=== PATIENT | male | born 1945 | race Caucasian/White ===

== ENCOUNTER → 2018-11-11 | Outpatient (CLI) | payer MEDICARE, BC ==
--- NOTE | 2018-11-11 16:46 | XR ---
EXAMINATION TYPE: XR chest 2V DATE OF EXAM: 11/11/2018 COMPARISON: NONE HISTORY: Bronchospasm and cough, shortness breath TECHNIQUE: Frontal and lateral views of the chest are obtained. FINDINGS: The patient is rotated. Probable calcified granuloma are present within the lungs. There is no focal air space opacity, pleural effusion, or pneumothorax seen. The cardiac silhouette size may be accentuated by rotation. The osseous structures are remarkable for posterior and lateral left s eventh and eighth rib fractures of indeterminate age. There is increased retrosternal airspace, AP di ameter of the chest suggesting underlying COPD, relative flattening the hemidiaphragms on the right. There is bronchial wall thickening. IMPRESSION: Correlate for bronchitis, reactive airways disease. Rib fractures of indeterminate age. Additional findings above.
== END | disposition home or self-care (01) ==
LOC: RADXRYALE 14:21
PROVIDERS: ATTEND Physician Assistant
DX: J98.8 Other specified respiratory disorders (principal)
CPT/HCPCS: 71046

== ENCOUNTER 2021-10-17 22:03 | Observation (INO) | payer MEDICARE, BC ==
[2021-10-17] MEDS ORDERED: ASPIRIN 81 MG PO STA (22:07)
[2021-10-17] MEDS ORDERED: MORPHINE SULFATE 4 MG/ML SYRINGE IV STA (22:07)
[2021-10-17 22:09] VITALS: RESP 18
[2021-10-17] MEDS ORDERED: FAMOTIDINE 20 MG/2 ML VIAL IV STA (22:17)
[2021-10-17] MEDS ORDERED: METOCLOPRAMIDE 5 MG/ML 2 ML VIAL IVP STA (22:17)
[2021-10-17] MEDS ORDERED: diphenhydrAMINE 50 MG/ML 1 ML VIAL IVP STA (22:17)
[2021-10-17] MEDS ORDERED: MAG HYDROX/AL HYDROX/SIMETH 30 ML, HYOSCYAMINE ELIXIR 10 ML, LIDOCAINE VISCOUS 2% 10 ML PO STA ×3 (22:17)
[2021-10-17 22:34] LABS: Anisocytosis Slight; Basophils % (A) 1 %; Eosinophils # (A) 0.1 k/uL (0-0.7); Eosinophils % (A) 4 %; HCT 38.4 % (39.0-53.0); HGB 13.7 gm/dL (13.0-17.5); Lymphocytes # (A) 0.8 k/uL (1.0-4.8); Lymphocytes % (A) 24 %; MCH 35.8 pg (25.0-35.0); MCHC 35.8 g/dL (31.0-37.0); MCV 100.2 fL (80.0-100.0); Macrocytosis Slight; Mean Platelet Volume 7.9; Monocytes # (A) 0.2 k/uL (0-1.0); Monocytes % (A) 6 %; Neutrophils % (A) 61 %; Platelet Count 146 k/uL (150-450); RBC 3.83 m/uL (4.30-5.90); RDW 17.3 % (11.5-15.5); WBC 3.2 k/uL (3.8-10.6)
[2021-10-17 22:57] LABS: Albumin 4.3 g/dL (3.5-5.0); Calcium 8.9 mg/dL (8.4-10.2); Potassium 4.1 mmol/L (3.5-5.1); Total Bilirubin 1.2 mg/dL (0.2-1.3); Total Protein 6.8 g/dL (6.3-8.2)
[2021-10-17 22:58] LABS: Partial Thromboplastin Time 23.4 sec (22.0-30.0); Prothrombin Time 10.8 sec (9.0-12.0)
--- NOTE | 2021-10-17 23:00 | ED ---
General Adult HPI - General Chief complaint: Chest Pain Stated complaint: Chest Pain Time Seen by Provider: 10/17/21 22:07 Source: EMS, RN notes reviewed, old records reviewed Mode of arrival: EMS Limitations: no limitations - History of Present Illness Initial comments: Patient is a 76-year-old male with past medical history remarkable for CAD with multiple stents, [place], hypertension who presents emergency Department complaining of what he states his chest pain but he points to his epigastric region. Chief complaint states chest pain, however pain when he points is in the epigastric and right upper quadrant of the abdomen. He points to his epigastric region and right upper quadrant of his abdomen when he describes the pain. States it is painful and has a difficult time qualifying it. It started today at approximately 8 PM. Was eating Oreo cookies and playing cards at that time. Endorses some mild nausea with the pain. Denies any fevers, chills, sick contacts, shortness of breath, diarrhea. Denies any episodes of emesis. Was concerned due to his heart history and he took 3 nitroglycerin tablets with no relief of the pain. He was given an additional 1-2 tablets by EMS on the way here with no change in the pain. Denies any lightheadedness. Denies any sweatiness. Denies any other acute complaints at this time. Denies any history of intra-abdominal surgeries. Unknown what prior EKGs looked like. He states he does get chest pain since 1999. Denies any known palliative or provocative factors. - Related Data Home Medications Medication Instructions Recorded Confirmed Acetylcysteine [Nac] 1,000 mg PO DAILY 10/17/21 10/17/21 Ascorbic Acid [Vitamin C] 1,000 mg PO DAILY 10/17/21 10/17/21 Aspirin EC [Ecotrin Low Dose] 81 mg PO DAILY 10/17/21 10/17/21 Atorvastatin [Lipitor] 80 mg PO HS 10/17/21 10/17/21 Cholecalciferol [Vitamin D3 (10 20 mcg PO DAILY 10/17/21 10/17/21 Mcg = 400 Iu)] Co Q-10 100mg 100 mg PO DAILY 10/17/21 10/17/21 DULoxetine HCL 20 mg PO DAILY PRN 10/17/21 10/17/21 Finasteride [Proscar] 5 mg PO DAILY 10/17/21 10/17/21 Gabapentin [Neurontin] 100 mg PO QID PRN 10/17/21 10/17/21 Glucos Sul 2Kcl/MSM/Chond/C/Mn 1 cap PO DAILY 10/17/21 10/17/21 [Glucosamine Chondroitin Cap] Isosorbide Mononitrate ER [Imdur] 15 mg PO DAILY 10/17/21 10/17/21 Magnesium 420mg 420 mg PO DAILY 10/17/21 10/17/21 Metoprolol Tartrate [Lopressor] 12.5 mg PO DIRECTED 10/17/21 10/17/21 Multivitamins, Thera [Multivitamin 1 tab PO DAILY 10/17/21 10/17/21 (formulary)] Pantoprazole [Protonix] 40 mg PO BID 10/17/21 10/17/21 Quercetin 500mg 500 mg PO DAILY 10/17/21 10/17/21 Tamsulosin [Flomax] 0.8 mg PO HS 10/17/21 10/17/21 Ticagrelor [Brilinta] 90 mg PO BID 10/17/21 10/17/21 Vitamin B Complex 1 cap PO DAILY 10/17/21 10/17/21 Zinc 50 mg PO DAILY 10/17/21 10/17/21 lisinopriL 2.5 mg PO DAILY 10/17/21 10/17/21 Allergies Allergy/AdvReac Type Severity Reaction Status Date / Time No Known Allergies Allergy Verified 10/17/21 23:31 Review of Systems ROS Statement: Those systems with pertinent positive or pertinent negative responses have been documented in the HPI. Review of Systems: CONST: Denies fever EYES: Denies blurry vision ENT: Denies nasal congestion C/V: Denies Chest pain RESP: Denies shortness of breath GI: Endorses abdominal pain : Denies dysuria SKIN: Denies rash. MSK: Denies joint pain. NEURO: Denies headache ROS Other: All systems not noted in ROS Statement are negative. Past Medical History Past Medical History: Myocardial Infarction ([place]) Smoking Status: Former smoker Past Alcohol Use History: Occasional Past Drug Use History: None Reported General Exam - General Exam Comments Initial Comments: General: Appears in no acute distress. HEAD: Normal with no signs of head trauma. EYES: PERRLA, EOMI, conjunctiva normal, no discharge. ENT: Hearing grossly intact, normal oropharynx. RESPIRATORY: Clear breath sounds bilaterally. No wheezes, rales, or rhonchi. C/V: Regular rate and rhythm. S1 and S2 auscultated, no edema, peripheral pulses 2+ and intact throughout ABD: Abdomen is soft, nondistended. Tenderness to palpation in the right upper quadrant as well as epigastric region of his abdomen. No guarding. No peritoneal signs. No rebound tenderness. No CVA tenderness to percussion. EXT: Normal range of motion, no obvious deformity SKIN: No rashes or lesions observed on exposed skin. NEURO: Alert and oriented 4. No focal deficits. Limitations: no limitations Course Vital Signs 10/17/21 10/17/21 22:05 22:17 Temperature 97.8 F Pulse Rate 62 Pulse Rate [ 61 Rate Supervisor ] Respiratory 18 Rate Blood Pressure 171/94 O2 Sat by Pulse 98 Oximetry Medical Decision Making - Medical Decision Making Based on the patient's presentation and physical exam, despite the initial complaint of chest pain it appears he is mostly having epigastric and right upper quadrant abdominal pain. We have no prior records for the patient. I did recommend we obtain a cardiopulmonary workup. Nitroglycerin tablets did not affect any of this chest pain, he appeared to have a total of 4-5 prior to arrival. Also already received an aspirin from EMS, 324 mg. Therefore we will treat him with a GI cocktail. He was in agreement with this plan. Vital signs are within normal limits. We'll obtain cardiopulmonary labs and abdominal labs. He received an aspirin. EKG showed a left bundle-branch block of unknown chronicity. No prior records for comparison. There are T-wave inversions in the inferior distribution, with a history of RCA stent. Unknown if these are chronic findings or not. Chest x- ray shows no acute cardiopulmonary process. Laboratory studies remarkable for an undetectable troponin. Covid is negative. Abdominal labs are unremarkable. On Reevaluation come patient's pain is completely resolved following the GI cocktail. Vital signs remained within normal limits. Heart scores moderate at 4-5. I did discuss with him at length, as we have no prior records with unknown history of ekg changes, I believe the safest option would be to admit him for telemetry monitoring as well as trending the troponins. He was in agreement with this plan. Cardiology will be consulted. I spoke with Dr. Hodgson of ob servation telemetry who was in agreement this plan as well. Patient is admitted in stable condition. - Lab Data Result diagrams: 10/17/21 22:24 10/17/21 22:24 Lab Results 10/17/21 10/17/21 10/17/21 Range/Units 22:24 22:24 22:24 WBC 3.2 L (3.8-10.6) k/uL RBC 3.83 L (4.30-5.90) m/uL Hgb 13.7 (13.0-17.5) gm/dL Hct 38.4 L (39.0-53.0) % MCV 100.2 H (80.0-100.0) fL MCH 35.8 H (25.0-35.0) pg MCHC 35.8 (31.0-37.0) g/dL RDW 17.3 H (11.5-15.5) % Plt Count 146 L (150-450) k/uL MPV 7.9 Neutrophils % 61 % Lymphocytes % 24 % Monocytes % 6 % Eosinophils % 4 % Basophils % 1 % Neutrophils # 2.0 (1.3-7.7) k/uL Lymphocytes # 0.8 L (1.0-4.8) k/uL Monocytes # 0.2 (0-1.0) k/uL Eosinophils # 0.1 (0-0.7) k/uL Basophils # 0.0 (0-0.2) k/uL Anisocytosis Slight Macrocytosis Slight PT (9.0-12.0) sec INR (<1.2) APTT (22.0-30.0) sec Sodium 139 (137-145) mmol/L Potassium 4.1 (3.5-5.1) mmol/L Chloride 105 (98-107) mmol/L Carbon Dioxide 22 (22-30) mmol/L Anion Gap 12 mmol/L BUN 18 (9-20) mg/dL Creatinine 1.11 (0.66-1.25) mg/dL Est GFR (CKD-EPI)AfAm 75 (>60 ml/min/1.73 sqM) Est GFR (CKD-EPI)NonAf 65 (>60 ml/min/1.73 sqM) Glucose 105 H (74-99) mg/dL Calcium 8.9 (8.4-10.2) mg/dL Magnesium 2.0 (1.6-2.3) mg/dL Total Bilirubin 1.2 (0.2-1.3) mg/dL AST 33 (17-59) U/L ALT 31 (4-49) U/L Alkaline Phosphatase 72 (38-126) U/L Troponin I <0.012 (0.000-0.034) ng/mL Total Protein 6.8 (6.3-8.2) g/dL Albumin 4.3 (3.5-5.0) g/dL Amylase 112 H (30-110) U/L Lipase 258 (23-300) U/L Coronavirus (PCR) (Not Detectd) 10/17/21 10/17/21 Range/Units 22:38 23:21 WBC (3.8-10.6) k/uL RBC (4.30-5.90) m/uL Hgb (13.0-17.5) gm/dL Hct (39.0-53.0) % MCV (80.0-100.0) fL MCH (25.0-35.0) pg MCHC (31.0-37.0) g/dL RDW (11.5-15.5) % Plt Count (150-450) k/uL MPV Neutrophils % % Lymphocytes % % Monocytes % % Eosinophils % % Basophils % % Neutrophils # (1.3-7.7) k/uL Lymphocytes # (1.0-4.8) k/uL Monocytes # (0-1.0) k/uL Eosinophils # (0-0.7) k/uL Basophils # (0-0.2) k/uL Anisocytosis Macrocytosis PT 10.8 (9.0-12.0) sec INR 1.0 (<1.2) APTT 23.4 (22.0-30.0) sec Sodium (137-145) mmol/L Potassium (3.5-5.1) mmol/L Chloride (98-107) mmol/L Carbon Dioxide (22-30) mmol/L Anion Gap mmol/L BUN (9-20) mg/dL Creatinine (0.66-1.25) mg/dL Est GFR (CKD-EPI)AfAm (>60 ml/min/1.73 sqM) Est GFR (CKD-EPI)NonAf (>60 ml/min/1.73 sqM) Glucose (74-99) mg/dL Calcium (8.4-10.2) mg/dL Magnesium (1.6-2.3) mg/dL Total Bilirubin (0.2-1.3) mg/dL AST (17-59) U/L ALT (4-49) U/L Alkaline Phosphatase (38-126) U/L Troponin I (0.000-0.034) ng/mL Total Protein (6.3-8.2) g/dL Albumin (3.5-5.0) g/dL Amylase (30-110) U/L Lipase (23-300) U/L Coronavirus (PCR) Not Detected (Not Detectd) - EKG Data -: EKG Interpreted by Me EKG Comments: 12-lead Electrocardiogram Interpretation Note EKG was reviewed and interpreted by myself. 12-lead ECG performed at 2204 is interpreted by me as revealing [normal sinus rhythm] with left bundle branch block of unknown chronicity. At a rate of 60 beats per minute. Boyd is normal. CA interval 220 ms, QRS durations 157 ms, QTc is 479 ms.. There are T-wave in versions in the inferior leads 2, 3, aVF. Unknown chronicity as we have no prior EKG for comparison.. R wave progression across the precordium was delayed. By my interpretation, this EKG does show T-wave inversions in a. Leads as well as a left bundle-branch block, with unknown chronicity of both. Patient does have a cardiac history and these could be chronic. Unknown.. Disposition Clinical Impression: Abdominal pain of unknown cause Narrative: left bundle branch block of unknown age, history of CAD, abd pain Disposition: ADMITTED IP TO THIS [facility] Condition: Stable Referrals: Nonstaff,Physician [Primary Care Provider] - 1-2 days Time of Disposition: 23:55
--- NOTE | 2021-10-17 23:18 | XR ---
EXAMINATION TYPE: XR chest 2V DATE OF EXAM: 10/17/2021 COMPARISON: NONE HISTORY: Cough and short of breath TECHNIQUE: 2 views FINDINGS: Heart is normal. Lungs are clear of infiltrate. No heart failure. There are no hilar masses . Costophrenic angles are clear. The bony thorax appears intact. IMPRESSION: No active cardiopulmonary disease. Normal heart. No change
[2021-10-17] MEDS ORDERED: ONDANSETRON 4 MG/2 ML VIAL IVP PRN (23:52)
[2021-10-17] MEDS ORDERED: MORPHINE SULFATE 4 MG/ML SYRINGE IV PRN (23:52)
[2021-10-17] MEDS ORDERED: NALOXONE 0.4 MG/ML 1 ML VIAL IV PRN (23:52)
[2021-10-18] MEDS ORDERED: METOPROLOL TARTRATE 12.5 MG TAB PO SCH ×2 (00:15→09:00)
[2021-10-18] MEDS ORDERED: GABAPENTIN 100 MG CAP PO PRN (00:15)
[2021-10-18 03:14] LABS: Basophils % (A) 0 %; Eosinophils # (A) 0.1 k/uL (0-0.7); Eosinophils % (A) 1 %; HCT 36.5 % (39.0-53.0); HGB 12.7 gm/dL (13.0-17.5); Lymphocytes # (A) 0.6 k/uL (1.0-4.8); Lymphocytes % (A) 15 %; MCHC 34.9 g/dL (31.0-37.0); MCV 100.3 fL (80.0-100.0); Macrocytosis Slight; Mean Platelet Volume 7.9; Monocytes # (A) 0.2 k/uL (0-1.0); Monocytes % (A) 6 %; Neutrophils # (A) 3.1 k/uL (1.3-7.7); Neutrophils % (A) 75 %; Platelet Count 155 k/uL (150-450); RBC 3.63 m/uL (4.30-5.90); RDW 15.7 % (11.5-15.5); WBC 4.2 k/uL (3.8-10.6)
[2021-10-18 03:24] LABS: Calcium 8.4 mg/dL (8.4-10.2); Potassium 4.5 mmol/L (3.5-5.1)
--- NOTE | 2021-10-18 04:21 | P.HPIM ---
History of Present Illness H&P Date: 10/18/21 The patient is a 76-year-old male with a PMH of coronary artery disease with multiple stents, hypertension, and hyperlipidemia who presents to the emergency room with complaints of epigastric discomfort. The patient reports that he was in his usual state of health until around 7 PM earlier tonight when he developed an epigastric abdominal discomfort while he was sitting down playing cards. The patient also reported associated nausea without vomiting. He subsequently took 3 nitroglycerin sublingual which did not alleviate his symptoms. Reports that the discomfort was 10 out of 10 on maximal intensity, aching in nature, nonradiating, with no alleviating or exacerbating features and was constant. Reports that the pain gradually improved after arrival to the emergency room and at time of interview had improved to a 3 out of 10. EKG in the emergency room revealed sinus rhythm with first-degree AV block and a left bundle-branch block at 60 bpm. No prior EKGs are available for comparison. Chest x-ray was unremarkable. Laboratory evaluation was remarkable for troponin less than 0.01 2. Review of systems: Pertinent positives and negatives as discussed in HPI, a complete review of s ystems was performed and all other systems are negative. Physical examination: General: non toxic, no distress, appears at stated age, obese Derm: no unusual rashes/lesions, warm Head: atraumatic, normocephalic, symmetric Eyes: EOMI, no lid lag, anicteric sclera, pupils equal round reactive to light ENT: Nose and ears atraumatic Neck: No cervical lymphadenopathy, trachea midline, supple Mouth: no lip lesion, mucus membranes moist Cardiovascular: S1S2 reg, no murmur, positive dorsalis pedis pulse bilateral, no edema Lungs: CTA bilateral, no rhonchi, no rales, no accessory muscle use Abdominal: soft, nontender to palpation, no guarding Ext: muscle strength 5 out of 5 in all 4 extremities grossly, no gross muscle atrophy, no contractures, Neuro: CN II-XI grossly intact, no gross focal neuro deficits Psych: Alert, oriented, appropriate affect Assessment/plan Chest pain, rule out ACS -Cardiology consult -Cardiac monitoring -Trend troponin -Continue with aspirin, statin Chronic conditions: Hypertension, hyperlipidemia -Continue with home meds DVT prophylaxis -Heparin subq The patient is admitted with an anticipated less than 2 midnight stay for evaluation of chest pain CODE STATUS: Full Code Discussed with: Patient Anticipated discharge date: in am Anticipated discharge place: Home Past Medical History Past Medical History: Myocardial Infarction ([place]) Smoking Status: Former smoker Past Alcohol Use History: Occasional Past Drug Use History: None Reported - Past Family History Mother Family Medical History: Hyperlipidemia Medications and Allergies Home Medications Medication Instructions Recorded Confirmed Type Acetylcysteine [Nac] 1,000 mg PO DAILY 10/17/21 10/17/21 History Ascorbic Acid [Vitamin C] 1,000 mg PO DAILY 10/17/21 10/17/21 History Aspirin EC [Ecotrin Low Dose] 81 mg PO DAILY 10/17/21 10/17/21 History Atorvastatin [Lipitor] 80 mg PO HS 10/17/21 10/17/21 History Cholecalciferol [Vitamin D3 (10 20 mcg PO DAILY 10/17/21 10/17/21 History Mcg = 400 Iu)] Co Q-10 100mg 100 mg PO DAILY 10/17/21 10/17/21 History DULoxetine HCL 20 mg PO DAILY PRN 10/17/21 10/17/21 History Finasteride [Proscar] 5 mg PO DAILY 10/17/21 10/17/21 History Gabapentin [Neurontin] 100 mg PO QID PRN 10/17/21 10/17/21 History Glucos Sul 2Kcl/MSM/Chond/C/Mn 1 cap PO DAILY 10/17/21 10/17/21 History [Glucosamine Chondroitin Cap] Isosorbide Mononitrate ER [Imdur] 15 mg PO DAILY 10/17/21 10/17/21 History Magnesium 420mg 420 mg PO DAILY 10/17/21 10/17/21 History Metoprolol Tartrate [Lopressor] 12.5 mg PO DIRECTED 10/17/21 10/17/21 History Multivitamins, Thera [Multivitamin 1 tab PO DAILY 10/17/21 10/17/21 History (formulary)] Pantoprazole [Protonix] 40 mg PO BID 10/17/21 10/17/21 History Quercetin 500mg 500 mg PO DAILY 10/17/21 10/17/21 History Tamsulosin [Flomax] 0.8 mg PO HS 10/17/21 10/17/21 History Ticagrelor [Brilinta] 90 mg PO BID 09/01/22 09/01/22 History Vitamin B Complex 1 cap PO DAILY 10/17/21 10/17/21 History Zinc 50 mg PO DAILY 10/17/21 10/17/21 History lisinopriL 2.5 mg PO DAILY 10/17/21 10/17/21 History Allergies Allergy/AdvReac Type Severity Reaction Status Date / Time No Known Allergies Allergy Verified 10/17/21 23:31 Physical Exam Vitals: Vital Signs Temp Pulse Pulse Resp BP Pulse Ox 10/18/21 00:33 97.6 F 62 18 135/65 99 10/17/21 22:17 61 10/17/21 22:05 97.8 F 62 18 171/94 98 Intake and Output 10/17/21 10/17/21 10/18/21 14:59 22:59 06:59 Other: Weight 90.718 kg Results CBC & Chem 7: 10/18/21 02:44 10/18/21 02:44 Labs: Abnormal Lab Results - Last 24 Hours (Table) 10/17/21 10/17/21 Range/Units 22:24 22:24 WBC 3.2 L (3.8-10.6) k/uL RBC 3.83 L (4.30-5.90) m/uL Hct 38.4 L (39.0-53.0) % MCV 100.2 H (80.0-100.0) fL MCH 35.8 H (25.0-35.0) pg RDW 17.3 H (11.5-15.5) % Plt Count 146 L (150-450) k/uL Lymphocytes # 0.8 L (1.0-4.8) k/uL Glucose 105 H (74-99) mg/dL Amylase 112 H (30-110) U/L
[2021-10-18] MEDS ORDERED: QUERCETIN 500 MG PO SCH (09:00)
[2021-10-18] MEDS ORDERED: NON FORMULARY DRUG (Co Q-10 100mg 100 MG) PO SCH (09:00)
[2021-10-18] MEDS ORDERED: HEPARIN SODIUM,PORCINE/PF 5,000 UNIT/0.5 ML SYRINGE SQ SCH (09:00)
[2021-10-18] MEDS ORDERED: PANTOPRAZOLE 40 MG TABLET PO SCH (09:00)
[2021-10-18] MEDS ORDERED: ASPIRIN 81 MG PO SCH (09:00)
[2021-10-18] MEDS ORDERED: ISOSORBIDE MONONITRATE ER 30 MG TAB.ER.24H PO SCH (09:00)
[2021-10-18] MEDS ORDERED: ZINC SULFATE 220 MG CAP PO SCH (09:00)
[2021-10-18] MEDS ORDERED: MAGNESIUM OXIDE 400 MG TAB PO SCH (09:00)
[2021-10-18] MEDS ORDERED: TICAGRELOR 90 MG TAB PO SCH (09:00)
[2021-10-18] MEDS ORDERED: FINASTERIDE 5 MG TAB PO SCH (09:00)
[2021-10-18] MEDS ORDERED: AMINOPHYLLINE 500 MG/20 ML VIAL IV PRN (09:22)
[2021-10-18] MEDS ORDERED: CAFFEINE CITRATE 60 MG/3 ML VIAL IV PRN (09:22)
[2021-10-18] MEDS ORDERED: REGADENOSON 0.4 MG/5 ML SYRINGE IV PRN (09:22)
[2021-10-18] MEDS ORDERED: NITROGLYCERIN SL TABS 0.4 MG TAB SUBLINGUAL PRN (09:40)
--- NOTE | 2021-10-18 09:44 | P.CRDCN ---
History of Present Illness History of present illness: HISTORY OF PRESENT ILLNESS: This is a 76-year-old male with a past medical history significant for coronary artery disease with previous stenting, hypertension, hyperlipidemia, and ischemic cardiomyopathy. Patient follows with a nurse wound care out of [place]. We have been asked to see the patient in consultation for chest pain. Patient examined at the bedside. Patient states that he was playing cards yesterday with a group of friends. He was walking home with his when he began to have pain in the middle of his chest. He states the pain went straight into his back. He denied any radiation to his arm or jaw. Denied any shortness of breath. He reports nausea but no vomiting. He states when he came home he took 3 nitro and a baby aspirin which did not help his pain at all. He then called EMS who gave him 3 more aspirin. This morning the pain is currently 8 210. Patient states this pain is not similar to his previous heart attack. He reports his symptoms of his previous heart attack were generalized malaise. The patient is a former cigarette smoker and quit smoking in 1998. He reports drinking beer on occasions, specifically the weekends. * EKG reveals sinus mechanism with left bundle-branch block * Chest xray negative for acute process * Laboratory data: WBC 4.2. Hemoglobin 12.7. Platelet count 155. Sodium 137. Potassium 4.5. BUN 16. Creatinine 1.08. Troponin negative 3. * Current home cardiac medications include Lipitor 80 mg at night, Brilinta 90 mg twice a day, lisinopril 2.5 mg daily, Imdur 15 mg daily, and metoprolol succinate 12.5 mg daily REVIEW OF SYSTEMS: At the time of my exam: CONSTITUTIONAL: Denies fever or chills. HEENT: Denies blurred vision, vision changes, or eye pain. Denies hemoptysis CARDIOVASCULAR: Denies chest pain. Denies orthopnea. Denies PND. Denies palpitations RESPIRATORY: Denies shortness of breath. GASTROINTESTINAL: Denies abdominal pain. Denies nausea or vomiting. HEMATOLOGIC: Denies bleeding disorders. GENITOURINARY: Denies any blood in urine. SKIN: Denies pruitis. Denies rash. PHYSICAL EXAM: VITAL SIGNS: Reviewed. GENERAL: Well-developed in no acute distress. HEENT: Head is normocephalic. Pupils are equal, round. Sclerae anicteric. Mucous membranes of the mouth are moist. Neck supple. No JVD or thyromegaly LUNGS: Respirations even and unlabored. Lungs essentially clear to auscultation bilaterally. HEART: Regular rate and rhythm. S1 and S2 heard. ABDOMEN: Soft. Nondistended. Nontender. EXTREMITIES: Normal range of motion. No clubbing or cyanosis. Peripheral pulses intact. No lower extremity edema NEUROLOGIC: Awake and alert. Oriented x 3. ASSESSMENT: Chest pain, troponins negative 3 Left bundle-branch block, unclear if this is old or new as there is no previous EKG for comparison Coronary artery disease with previous stenting, most recently in August 2020 in [place] Hypertension Hyperlipidemia History of ischemic cardiomyopathy, per patient Former nicotine dependence PLAN: Obtain 2-D echo to assess cardiac structure and function Obtain records from patient's primary nurse wound care Resume home cardiac medications Patient will undergo Lexiscan stress test today to assess for ischemia Further recommendations pending patient course Nurse practitioner note has been reviewed by physician. Signing provider agrees with the documented findings, assessment, and plan of care. Past Medical History Past Medical History: Myocardial Infarction ([place]) Last Myocardial Infarction Date:: . History of Any Multi-Drug Resistant Organisms: None Reported Smoking Status: Former smoker Past Alcohol Use History: Occasional Past Drug Use History: None Reported - Past Family History Mother Family Medical History: Hyperlipidemia Medications and Allergies Home Medications Medication Instructions Recorded Confirmed Type Acetylcysteine [Nac] 1,000 mg PO DAILY 10/17/21 10/17/21 History Ascorbic Acid [Vitamin C] 1,000 mg PO DAILY 10/17/21 10/17/21 History Aspirin EC [Ecotrin Low Dose] 81 mg PO DAILY 10/17/21 10/17/21 History Atorvastatin [Lipitor] 80 mg PO HS 10/17/21 10/17/21 History Cholecalciferol [Vitamin D3 (10 20 mcg PO DAILY 10/17/21 10/17/21 History Mcg = 400 Iu)] Co Q-10 100mg 100 mg PO DAILY 10/17/21 10/17/21 History DULoxetine HCL 20 mg PO DAILY PRN 10/17/21 10/17/21 History Finasteride [Proscar] 5 mg PO DAILY 10/17/21 10/17/21 History Gabapentin [Neurontin] 100 mg PO QID PRN 10/17/21 10/17/21 History Glucos Sul 2Kcl/MSM/Chond/C/Mn 1 cap PO DAILY 10/17/21 10/17/21 History [Glucosamine Chondroitin Cap] Isosorbide Mononitrate ER [Imdur] 15 mg PO DAILY 10/17/21 10/17/21 History Magnesium 420mg 420 mg PO DAILY 10/17/21 10/17/21 History Multivitamins, Thera [Multivitamin 1 tab PO DAILY 10/17/21 10/17/21 History (formulary)] Pantoprazole [Protonix] 40 mg PO BID 10/17/21 10/17/21 History Quercetin 500mg 500 mg PO DAILY 10/17/21 10/17/21 History Tamsulosin [Flomax] 0.8 mg PO HS 10/17/21 10/17/21 History Ticagrelor [Brilinta] 90 mg PO BID 10/17/21 10/17/21 History Vitamin B Complex 1 cap PO DAILY 10/17/21 10/17/21 History Zinc 50 mg PO DAILY 10/17/21 10/17/21 History lisinopriL 2.5 mg PO DAILY 10/17/21 10/17/21 History Metoprolol Succinate (ER) [Toprol 12.5 mg PO DAILY 10/18/21 10/18/21 History Xl] Allergies Allergy/AdvReac Type Severity Reaction Status Date / Time No Known Allergies Allergy Verified 10/17/21 23:31 Physical Exam Vitals: Vital Signs Temp Pulse Pulse Pulse Resp BP BP 10/18/21 02:03 98.5 F 61 18 124/68 10/18/21 00:33 97.6 F 62 18 135/65 10/17/21 22:17 61 10/17/21 22:05 97.8 F 62 18 171/94 Pulse Ox 10/18/21 02:03 98 10/18/21 00:33 99 10/17/21 22:17 10/17/21 22:05 98 Intake and Output 10/17/21 10/18/21 10/18/21 22:59 06:59 14:59 Other: Weight 90.718 kg 90.718 kg Results 10/18/21 02:44 10/18/21 02:44 Cardiac Enzymes 10/17/21 10/17/21 10/18/21 Range/Units 22:24 22:24 02:44 AST 33 (17-59) U/L Troponin I <0.012 0.017 (0.000-0.034) ng/mL 10/18/21 Range/Units 05:07 AST (17-59) U/L Troponin I 0.013 (0.000-0.034) ng/mL Coagulation 10/17/21 Range/Units 22:38 PT 10.8 (9.0-12.0) sec APTT 23.4 (22.0-30.0) sec CBC 10/17/21 10/18/21 Range/Units 22:24 02:44 WBC 3.2 L 4.2 (3.8-10.6) k/uL RBC 3.83 L 3.63 L (4.30-5.90) m/uL Hgb 13.7 12.7 L (13.0-17.5) gm/dL Hct 38.4 L 36.5 L (39.0-53.0) % Plt Count 146 L 155 (150-450) k/uL Comprehensive Metabolic Panel 10/17/21 10/18/21 Range/Units 22:24 02:44 Sodium 139 137 (137-145) mmol/L Potassium 4.1 4.5 (3.5-5.1) mmol/L Chloride 105 106 (98-107) mmol/L Carbon Dioxide 22 21 L (22-30) mmol/L BUN 18 16 (9-20) mg/dL Creatinine 1.11 1.08 (0.66-1.25) mg/dL Glucose 105 H 119 H (74-99) mg/dL Calcium 8.9 8.4 (8.4-10.2) mg/dL AST 33 (17-59) U/L ALT 31 (4-49) U/L Alkaline Phosphatase 72 (38-126) U/L Total Protein 6.8 (6.3-8.2) g/dL Albumin 4.3 (3.5-5.0) g/dL Current Medications Generic Name Dose Route Start Last Admin Trade Name Freq PRN Reason Stop Dose Admin Aspirin 81 mg 10/18/21 09:00 Aspirin 81 Mg PO DAILY [facility] Atorvastatin Calcium 80 mg 10/18/21 21:00 Atorvastatin 80 Mg Tab PO HS [facility] Finasteride 5 mg 10/18/21 09:00 Finasteride 5 Mg Tab PO DAILY [facility] Gabapentin 100 mg 10/18/21 00:15 Gabapentin 100 Mg Cap PO QID PRN NERVE PAIN Heparin Sodium (Porcine) 5,000 unit 10/18/21 09:00 Heparin Sodium,Porcine/Pf 5,000 Unit/0.5 Ml Syringe SQ Q12HR [facility] Isosorbide Mononitrate 15 mg 10/18/21 09:00 Isosorbide Mononitrate Er 30 Mg Tab.Er.24h PO DAILY [facility] Lisinopril 2.5 mg 10/18/21 09:00 Lisinopril 2.5 Mg Tab PO DAILY [facility] Magnesium Oxide 400 mg 10/18/21 09:00 Magnesium Oxide 400 Mg Tab PO DAILY [facility] Metoprolol Tartrate 12.5 mg 10/18/21 09:00 Metoprolol Tartrate 12.5 Mg Tab PO DAILY [facility] Morphine Sulfate 4 mg 10/17/21 23:52 Morphine Sulfate 4 Mg/Ml Syringe IV Q4HR PRN Severe Pain (Scale 7 to 10) Naloxone HCl 0.2 mg 10/17/21 23:52 Naloxone 0.4 Mg/Ml 1 Ml Vial IV Q2M PRN Opioid Reversal Ondansetron HCl 4 mg 10/17/21 23:52 Ondansetron 4 Mg/2 Ml Vial IVP Q8HR PRN Nausea And Vomiting Pantoprazole Sodium 40 mg 10/18/21 09:00 Pantoprazole 40 Mg Tablet PO BID [facility] Ticagrelor 90 mg 10/18/21 09:00 Ticagrelor 90 Mg Tab PO BID [facility] Zinc Sulfate 220 mg 10/18/21 09:00 Zinc Sulfate 220 Mg Cap PO DAILY [facility] Intake and Output 10/17/21 10/18/21 10/18/21 22:59 06:59 14:59 Other: Weight 90.718 kg 90.718 kg 10/18/21 02:44 10/18/21 02:44
[2021-10-18] MEDS ORDERED: AMINOPHYLLINE 500 MG/20 ML VIAL IV ONE (11:50)
[2021-10-18 12:56] VITALS: BP 145/66; PULSE 62; TEMP 98.4
--- NOTE | 2021-10-18 13:01 | NM ---
EXAMINATION TYPE: NM stress lexiscan cardiolite DATE OF EXAM: 10/18/2021 COMPARISON: NONE HISTORY: TECHNIQUE: After the intravenous administration of 9.94 mCi Tc 99m Sestamibi - Cardiolite resting SP ECT images acquired 45 minutes post injection. The patient received 0.4mg Lexiscan, 25.2 mCi Tc 99m Sestamibi - Stress images obtained [address] injection FINDINGS: Review of stress and rest SPECT images demonstrates no distinct reversible perfusion abnormality. Fix ed defect involving the apical septum noted. Gated analysis shows reduced wall motion with an estima shin left ventricular ejection fraction of 38 %. IMPRESSION: 1. No scintigraphic evidence for reversible ischemia. 2. Abnormal ejection of 38% fraction wall motion activity. Correlate clinically. 3. Correlate for previous myocardial infarction and apical septal myocardium.
--- NOTE | 2021-10-18 13:32 | CA ---
Transthoracic Echo Report Name: Inga Fields Age: 76 Gender: M : 1945 Exam Date: 10/18/2021 09:03 Exam Location: [facility] Ht (in): 63 Wt (lb): 200 Ordering Physician: Kassandra Barton Attending/Referring Phys: [id number], [employer] Professor Mariama Reynoso RDCS Procedure CPT: Indications: LV function Cardiac Hx: Technical Quality: Technically difficult study Contrast 1: Lumason Total Dose (mL): 3 Contrast 2: Total Dose (mL): MEASUREMENTS (Male / Female) Normal Values 2D ECHO LV Diastolic Diameter PLAX 6.0 cm 4.2 - 5.9 / 3.9 - 5.3 cm LV Systolic Diameter PLAX 5.1 cm IVS Diastolic Thickness 0.9 cm 0.6 - 1.0 / 0.6 - 0.9 cm LVPW Diastolic Thickness 0.9 cm 0.6 - 1.0 / 0.6 - 0.9 cm LV Relative Wall Thickness 0.3 LA Volume 83.6 cm??? 18 - 58 / 22 - 52 cm??? M-MODE MV E Point Septal Separation 0.9 cm DOPPLER MV Area PHT 4.0 cm??? Mitral E Point Velocity 51.1 cm/s Mitral A Point Velocity 98.6 cm/s Mitral E to A Ratio 0.5 MV Deceleration Time 188.6 ms MV E' Velocity 2.4 cm/s Mitral E to MV E' Ratio 21.2 TR Peak Velocity 244.0 cm/s TR Peak Gradient 23.8 mmHg Right Ventricular Systolic Press 28.8 mmHg FINDINGS Left Ventricle Mildly increased left ventricular diastolic diameter. Global left ventricular hypokinesis. Left ventricular ejection fraction is estimated at 25 %. Right Ventricle Normal right ventricular size and function. Right ventricular systolic pressure within normal limits. Right Atrium Normal right atrial size. Left Atrium Severely increased left atrial volume. Mildly increased left atrial area. Mitral Valve Structurally normal mitral valve. Mild mitral regurgitation. Aortic Valve Trileaflet aortic valve. Tricuspid Valve Structurally normal tricuspid valve. Pulmonic Valve Pulmonic valve not well visualized. Pericardium Normal pericardium. Aorta Aortic root and proximal ascending aorta not well visualized. CONCLUSIONS Left ventricular ejection fraction 25% Global hypokinesis Mild mitral regurgitation RVSP 28 No pericardial effusion Previewed by: Dr. Jacob Luna DO (Electronically Signed) Final Date: 18 October 2021 13:31
--- NOTE | 2021-10-18 17:02 | P.DS ---
Providers Date of admission: 10/17/21 23:52 Expected date of discharge: 10/18/21 Attending physician: Bethany Hodgson MD Consults: 10/17/21 23:52 Consult Physician Routine Consulting Provider: [facility] Consult Reason/Comments: abd pain, LBBB of unknown chronicity on ekg, hx of stent RCA Do you want consulting provider notified?: Yes, Notify in am Primary care physician: Physician Nonstaff Hospital Course: Discharge Diagnosis: Acute chest pain Chronic systolic heart failure GERD History of CAD Hospital Course: 76-year-old male with history of CAD status post multiple stents [most recent in 2020), hypertension, hyperlipidemia, GERD initially presented with acute epigastric discomfort. On arrival, pain had began to improve. EKG demonstrated first-degree AV block and left bundle branch block. No prior EKGs available for comparison. Chest x-ray initially was unremarkable. Troponin was less than 0.017. Patient was evaluated by cardiology. Lexiscan stress test showed no evidence of reversible ischemia. Echo demonstrated LVEF of 25% with global hypokinesis and mild mitral regurgitation. Patient is a resident of [place], and is visiting here. He will be returning back in 2 weeks. Upon reviewing records from [place], patient does have previously recorded left bundle branch block and a low EF of 30%. Upon discharge, patient was chest pain-free. Chest pain likely noncardiac in origin given negative stress test and unchanged EKG and echocardiogram findings. 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 Patient seen and examined at bedside. Vital signs reviewed and stable. General: nontoxic, no distress, appears at stated age Derm: warm, dry Head: atraumatic, normocephalic, symmetric Eyes: EOMI, no lid lag, anicteric sclera Mouth: no lip lesion, mucus membranes moist Cardiovascular: S1S2 reg, no murmur Lungs: CTA bilateral, no rhonchi, no rales , no accessory muscle use Abdominal: soft, nontender to palpation, no guarding, no appreciable organomegaly Ext: no gross muscle atrophy, trace peripheral edema, no contractures Neuro: CN II-XI grossly intact, no focal neuro deficits Psych: Alert, oriented, appropriate affect A total of 36 minutes of time were spent preparing this complex discharge summary. Patient was discharged on 10/18/21 at 13:44. Patient Condition at Discharge: Stable Plan - Discharge Summary Discharge Rx Participant: Yes New Discharge Prescriptions: Continue Acetylcysteine [Nac] 1,000 mg PO DAILY Cholecalciferol [Vitamin D3 (10 Mcg = 400 Iu)] 20 mcg PO DAILY Ascorbic Acid [Vitamin C] 1,000 mg PO DAILY Aspirin EC [Ecotrin Low Dose] 81 mg PO DAILY Zinc 50 mg PO DAILY Finasteride [Proscar] 5 mg PO DAILY Pantoprazole [Protonix] 40 mg PO BID Magnesium 420mg 420 mg PO DAILY Isosorbide Mononitrate ER [Imdur] 15 mg PO DAILY DULoxetine HCL 20 mg PO DAILY PRN PRN Reason: NERVE PAIN Metoprolol Succinate (ER) [Toprol XL] 12.5 mg PO DAILY Quercetin 500mg 500 mg PO DAILY Multivitamins, Thera [Multivitamin (formulary)] 1 tab PO DAILY Glucos Sul 2Kcl/MSM/Chond/C/Mn [Glucosamine Chondroitin Cap] 1 cap PO DAILY Vitamin B Complex 1 cap PO DAILY Tamsulosin [Flomax] 0.8 mg PO HS Co Q-10 100mg 100 mg PO DAILY lisinopriL 2.5 mg PO DAILY Ticagrelor [Brilinta] 90 mg PO BID Atorvastatin [Lipitor] 80 mg PO HS Gabapentin [Neurontin] 100 mg PO QID PRN PRN Reason: NERVE PAIN Discharge Medication List Acetylcysteine [Nac] 1,000 mg PO DAILY 10/17/21 [History] Ascorbic Acid [Vitamin C] 1,000 mg PO DAILY 10/17/21 [History] Aspirin EC [Ecotrin Low Dose] 81 mg PO DAILY 10/17/21 [History] Atorvastatin [Lipitor] 80 mg PO HS 10/17/21 [History] Cholecalciferol [Vitamin D3 (10 Mcg = 400 Iu)] 20 mcg PO DAILY 10/17/21 [History] Co Q-10 100mg 100 mg PO DAILY 10/17/21 [History] DULoxetine HCL 20 mg PO DAILY PRN 10/17/21 [History] Finasteride [Proscar] 5 mg PO DAILY 10/17/21 [History] Gabapentin [Neurontin] 100 mg PO QID PRN 10/17/21 [History] Glucos Sul 2Kcl/MSM/Chond/C/Mn [Glucosamine Chondroitin Cap] 1 cap PO DAILY 10/17/21 [History] Isosorbide Mononitrate ER [Imdur] 15 mg PO DAILY 10/17/21 [History] Magnesium 420mg 420 mg PO DAILY 10/17/21 [History] Multivitamins, Thera [Multivitamin (formulary)] 1 tab PO DAILY 10/17/21 [History] Pantoprazole [Protonix] 40 mg PO BID 10/17/21 [History] Quercetin 500mg 500 mg PO DAILY 10/17/21 [History] Tamsulosin [Flomax] 0.8 mg PO HS 10/17/21 [History] Ticagrelor [Brilinta] 90 mg PO BID 10/17/21 [History] Vitamin B Complex 1 cap PO DAILY 10/17/21 [History] Zinc 50 mg PO DAILY 10/17/21 [History] lisinopriL 2.5 mg PO DAILY 10/17/21 [History] Metoprolol Succinate (ER) [Toprol XL] 12.5 mg PO DAILY 10/18/21 [History] Follow up Appointment(s)/Referral(s): Nonstaff,Physician [Primary Care Provider] - 1-2 days Patient Instructions/Handouts: Angina (GEN) Activity/Diet/Wound Care/Special Instructions: Please see PCP and Cardiology as soon as possible once back in [place]. Discharge Disposition: HOME SELF-CARE
[2021-10-18] MEDS ORDERED: ATORVASTATIN 80 MG TAB PO SCH (21:00)
[2021-10-18] MEDS ORDERED: TAMSULOSIN 0.4 MG CAP.ER.24H PO SCH (21:00)
[2021-10-19] MEDS ORDERED: MULTIVITAMINS, THERA 1 EACH TAB PO SCH (09:00)
[2021-10-19] MEDS ORDERED: CHOLECALCIFEROL 10 MCG (400 IU) TABLET PO SCH (09:00)
[2021-10-19] MEDS ORDERED: FOLIC ACID-VIT B COMPLEX-VIT C 1 CAP PO SCH (09:00)
[2021-10-19] MEDS ORDERED: ASCORBIC ACID 500 MG TAB PO SCH (09:00)
== END 2021-10-18 14:08 | disposition home or self-care (01) ==
LOC: EC 22:03 → 6NMEDSUR 23:52
PROVIDERS: ADMIT Internal Medicine; ATTEND Internal Medicine
DX: R07.89 Other chest pain (principal); R10.13 Epigastric pain; I25.10 Atherosclerotic heart disease of native coronary artery without angina pectoris; I11.0 Hypertensive heart disease with heart failure; I50.22 Chronic systolic (congestive) heart failure; I34.0 Nonrheumatic mitral (valve) insufficiency; I25.5 Ischemic cardiomyopathy; I44.7 Left bundle-branch block, unspecified; E78.5 Hyperlipidemia, unspecified; I44.0 Atrioventricular block, first degree; K21.9 Gastro-esophageal reflux disease without esophagitis; I25.2 Old myocardial infarction; R10.11 Right upper quadrant pain; R11.0 Nausea; Z20.822 Contact with and (suspected) exposure to COVID-19; Z79.82 Long term (current) use of aspirin; Z79.02 Long term (current) use of antithrombotics/antiplatelets; Z79.899 Other long term (current) drug therapy; Z87.891 Personal history of nicotine dependence; Z95.5 Presence of coronary angioplasty implant and graft; Z83.49 Family history of other endocrine, nutritional and metabolic diseases
CPT/HCPCS: 96372; 96374; 96375; 99285; 36415; 93005; 93017; 80053; 80048; 82150; 83690; 83735; 84484 ×2; 85025 ×2; 85610; 85730; 87635; 71046; 78452; G0378; C8929; A9500; S0138; J2270; J1200; J2765; J0280; J2785; Q9950; J1644; 93306

== ENCOUNTER 2021-10-25 02:55 | Observation (INO) | payer MEDICARE, BC ==
--- NOTE | 2021-10-25 03:10 | ED ---
Chest Pain HPI - General Chief Complaint: Chest Pain Stated Complaint: Anxiety Attack Time Seen by Provider: 10/25/21 03:01 Source: patient, family, RN notes reviewed, old records reviewed Mode of arrival: ambulatory Limitations: no limitations - History of Present Illness Initial Comments: This is a 76-year-old male to the emergency department for evaluation presents today for evaluation of chest pain with significant history of heart disease multiple stents and recent admission for chest pain. Patient presents today with worsening chest pain going on for the last 2 days. Patient presents with chest pain here in the ER today and has persistent chest pain on evaluation MD Complaint: chest pain -: days(s) Onset: during rest, during exertion Pain Location: left chest Severity: moderate Severity scale (1-10): 6 Quality: tightness, heaviness Consistency: intermittent Improves With: nothing Worsens With: exertion Anginal Symptoms: sense of impending doom Other Symptoms: palpitations Treatments Prior to Arrival: none - Related Data Home Medications Medication Instructions Recorded Confirmed Acetylcysteine [Nac] 1,000 mg PO DAILY 10/17/21 10/17/21 Ascorbic Acid [Vitamin C] 1,000 mg PO DAILY 10/17/21 10/17/21 Aspirin EC [Ecotrin Low Dose] 81 mg PO DAILY 10/17/21 10/17/21 Atorvastatin [Lipitor] 80 mg PO HS 10/17/21 10/17/21 Cholecalciferol [Vitamin D3 (10 20 mcg PO DAILY 10/17/21 10/17/21 Mcg = 400 Iu)] Co Q-10 100mg 100 mg PO DAILY 10/17/21 10/17/21 DULoxetine HCL 20 mg PO DAILY PRN 10/17/21 10/17/21 Finasteride [Proscar] 5 mg PO DAILY 10/17/21 10/17/21 Gabapentin [Neurontin] 100 mg PO QID PRN 10/17/21 10/17/21 Glucos Sul 2Kcl/MSM/Chond/C/Mn 1 cap PO DAILY 10/17/21 10/17/21 [Glucosamine Chondroitin Cap] Isosorbide Mononitrate ER [Imdur] 15 mg PO DAILY 10/17/21 10/17/21 Magnesium 420mg 420 mg PO DAILY 10/17/21 10/17/21 Multivitamins, Thera [Multivitamin 1 tab PO DAILY 10/17/21 10/17/21 (formulary)] Pantoprazole [Protonix] 40 mg PO BID 10/17/21 10/17/21 Quercetin 500mg 500 mg PO DAILY 10/17/21 10/17/21 Tamsulosin [Flomax] 0.8 mg PO HS 10/17/21 10/17/21 Ticagrelor [Brilinta] 90 mg PO BID 10/17/21 10/17/21 Vitamin B Complex 1 cap PO DAILY 10/17/21 10/17/21 Zinc 50 mg PO DAILY 10/17/21 10/17/21 lisinopriL 2.5 mg PO DAILY 10/17/21 10/17/21 Metoprolol Succinate (ER) [Toprol 12.5 mg PO DAILY 10/18/21 10/18/21 XL] Allergies Allergy/AdvReac Type Severity Reaction Status Date / Time No Known Allergies Allergy Verified 10/25/21 03:05 Review of Systems ROS Statement: Those systems with pertinent positive or pertinent negative responses have been documented in the HPI. ROS Other: All systems not noted in ROS Statement are negative. EKG Findings - EKG Comments: EKG Findings:: EKG shows chest pain sinus 62 MS 202 QRS 150 QTC 486 Past Medical History Past Medical History: Myocardial Infarction ([place]) Last Myocardial Infarction Date:: . History of Any Multi-Drug Resistant Organisms: None Reported Past Surgical History: No Surgical Hx Reported Past Psychological History: No Psychological Hx Reported Smoking Status: Former smoker Past Alcohol Use History: Occasional Past Drug Use History: None Reported - Past Family History Mother Family Medical History: Hyperlipidemia General Exam Limitations: no limitations General appearance: alert, in no apparent distress Head exam: Present: atraumatic, normocephalic, normal inspection Eye exam: Present: normal appearance, PERRL, EOMI. Absent: scleral icterus, conjunctival injection, periorbital swelling ENT exam: Present: normal exam, mucous membranes moist Neck exam: Present: normal inspection. Absent: tenderness, meningismus, lymphadenopathy Respiratory exam: Present: normal lung sounds bilaterally. Absent: respiratory distress, wheezes, rales, rhonchi, stridor Cardiovascular Exam: Present: regular rate, normal rhythm, normal heart sounds. Absent: systolic murmur, diastolic murmur, rubs, gallop, clicks GI/Abdominal exam: Present: soft, normal bowel sounds. Absent: distended, tenderness, guarding, rebound, rigid Extremities exam: Present: normal inspection, full ROM, normal capillary refill. Absent: tenderness, pedal edema, joint swelling, calf tenderness Back exam: Present: normal inspection Neurological exam: Present: alert, oriented X3, CN II-XII intact Psychiatric exam: Present: normal affect, normal mood Skin exam: Present: warm, dry, intact, normal color. Absent: rash Course Vital Signs 10/25/21 10/25/21 03:01 03:30 Temperature 97.5 F L Pulse Rate 63 Pulse Rate [ 66 Pulse Oximetery ] Respiratory 22 Rate Blood Pressure 148/72 O2 Sat by Pulse 99 Oximetry - Reevaluation(s) Reevaluation #1: 10/25/21 04:49 Medical record is reviewed Reevaluation #2: 10/25/21 04:49 Patient having persistent chest pain here in the ER Reevaluation #3: 10/25/21 04:49 Patient informed of results and questions answered - Consultations Consultation #1: Spoke with sound who agrees to admit this patient Chest Pain MDM - MDM 76 male DF for evaluation of chest pain chest pain rule out ACS. Pain is persistent from prior hospitalization significant history of heart disease Critical Care Time Critical Care Time: Yes Total Critical Care Time: 31 Disposition Clinical Impression: Chest pain Disposition: ADMITTED IP TO THIS [facility] Condition: Undetermined Instructions (If sedation given, give patient instructions): Chest Pain (ED) Is patient prescribed a controlled substance at d/c from ED?: No Referrals: Nonstaff,Physician [Primary Care Provider] - 1-2 days Time of Disposition: 04:50
--- NOTE | 2021-10-25 03:49 | XR ---
EXAMINATION TYPE: XR chest 2V DATE OF EXAM: 10/25/2021 COMPARISON: 10/17/2021 HISTORY: Chest pain TECHNIQUE: 2 views FINDINGS: Heart and mediastinum are normal. Lungs are clear. Diaphragm is normal. Bony thorax is inta ct IMPRESSION: Normal chest. No change.
[2021-10-25 03:54] LABS: Albumin 4.2 g/dL (3.5-5.0); Potassium 4.2 mmol/L (3.5-5.1); Total Bilirubin 1.1 mg/dL (0.2-1.3); Total Protein 6.4 g/dL (6.3-8.2)
[2021-10-25 03:58] LABS: Basophils % (A) 1 %; Eosinophils # (A) 0.1 k/uL (0-0.7); Eosinophils % (A) 4 %; HCT 40.8 % (39.0-53.0); HGB 13.6 gm/dL (13.0-17.5); Lymphocytes # (A) 0.4 k/uL (1.0-4.8); Lymphocytes % (A) 13 %; MCH 32.8 pg (25.0-35.0); MCHC 33.4 g/dL (31.0-37.0); MCV 98.2 fL (80.0-100.0); Mean Platelet Volume 8.2; Monocytes # (A) 0.2 k/uL (0-1.0); Monocytes % (A) 8 %; Neutrophils # (A) 2.1 k/uL (1.3-7.7); Neutrophils % (A) 71 %; Platelet Count 143 k/uL (150-450); Prothrombin Time 10.8 sec (9.0-12.0); RBC 4.15 m/uL (4.30-5.90); RDW 13.8 % (11.5-15.5); WBC 2.9 k/uL (3.8-10.6)
[2021-10-25] MEDS ORDERED: MORPHINE SULFATE 4 MG/ML SYRINGE IVP PRN (04:42)
[2021-10-25] MEDS ORDERED: MORPHINE SULFATE 4 MG/ML SYRINGE IVP STA (04:42)
[2021-10-25] MEDS ORDERED: NITROGLYCERIN SL TABS 0.4 MG TAB SUBLINGUAL PRN (04:46)
[2021-10-25] MEDS ORDERED: HEPARIN SODIUM 1,000 UN/ML (10ML VL) IV ONE (04:46)
[2021-10-25] MEDS ORDERED: HEPARIN SOD,PORK IN 0.45% NACL 25,000 UNIT in 0.45% NACL 1 250ML.BAG IV SCH (05:00)
[2021-10-25] MEDS ORDERED: GABAPENTIN 100 MG CAP PO PRN (09:29)
[2021-10-25] MEDS ORDERED: DULoxetine HCL 20 MG CAPSULE.DR PO PRN (09:29)
--- NOTE | 2021-10-25 09:29 | P.HPIM ---
History of Present Illness H&P Date: 10/25/21 History of Presenting Illness: Patient is a very pleasant 76-year-old male with a past medical history of CAD with stents on dual antiplatelet therapy with aspirin and Brilinta, h ypertension, ischemic cardiomyopathy, and hyperlipidemia. he presented to the emergency department with a chief complaint of chest pain. Patient reports midsternal chest pain with exertion. Patient states he has been experiencing this intermittent pain over the past 2 days. He denies having any headache, lightheadedness, dizziness, palpitations, shortness of breath, exertional dyspnea, nausea, diaphoresis, or experiencing any numbness/tingling/weakness/swelling in his extremities. Patient describes this pain as a tightness and states that it remains in his midsternal chest and denies any radiation of this pain. Patient denies anything making it better or worse but does state he noticed that it comes on more with exertion. Patient underwent full evaluation in the emergency department. EKG completed revealing sinus rhythm at 62 bpm with a left bundle branch blockwhich is unchanged from previous EKG obtained on 10/17/21. chest x-ray negative for acute cardiopulmonary process.CBC revealing bicytopenia with WBC count of 2.9 and platelet count of 143. CMP showing no significant abnormalities. Initial troponin 0.022 with repeat troponin is 0.026. Patient admitted under our services with consultation to cardiology. Review of systems: Pertinent positives and negatives as discussed in HPI, a complete review of systems was performed and all other systems are negative. Physical exam: Vital signs reviewed and stable. General: Nontoxic, no distress and appears stated age. Derm: Skin warm and dry, normal coloration for ethnicity. Head: Atraumatic, normocephalic and symmetric. Eyes: EOMs intact, no lid lag, and anicteric sclera Mouth: no lip lesions, mucus membranes moist Cardiovascular: regular rate and rhythm with normal S1S2, systolic murmur, positive posterior tibial pulses bilaterally, and cap refill < 2 seconds. Lungs: Respirations even, regular, and unlabored on room air. Lungs CTA bilaterally, no rhonchi, no rales, no wheezing, and no accessory muscle usage. Abdominal: soft, nontender to palpation, no guarding, no appreciable organomegaly Ext: ROM intact. No gross muscle atrophy, trace bilateral lower extremity edema, no contractures Neuro: Speech clear, face symmetrical and CN II-XII grossly intact with no noted focal neuro deficits Psych: Alert and oriented to person, place, time, and situation. Appropriate and pleasant affect. Assessment and Plan of Care: Chest pain, rule out acute coronary event History of CAD with stents Ischemic cardiomyopathy with previously known EF of 25% Hypertension Hyperlipidemia -Cardiology consult, appreciate further recommendations -Telemetry monitoring -Trend troponins -Cardiac diet, NPO at midnight -Continue cardiac medication regimen with Brilinta,aspirin, atorvastatin, isosorbide mononitrate, lisinopril, and metoprolol. -Echocardiogram completed 10/18/21 revealing severely impaired EF of 25% with left global hypokinesis and mild mitral regurgitation. The patient is admitted with an anticipated less than 2 midnight stay for evaluation of chest pain CODE STATUS: Full code DVT prophylaxis: Heparin Discussed with: Pt and RN Anticipated discharge date: 1-[address]: Home A total of 49 minutes was spent on the care of this complex patient more than 50% of the time was spent in counseling and care coordination. I reviewed the documentation as provided by the MENDOZA above, who is the original author of this note. I agree with the documented assessment and plan, with the following changes: none Past Medical History Past Medical History: Myocardial Infarction (ND) Last Myocardial Infarction Date:: . History of Any Multi-Drug Resistant Organisms: None Reported Past Surgical History: No Surgical Hx Reported Past Psychological History: No Psychological Hx Reported Smoking Status: Former smoker Past Alcohol Use History: Occasional Past Drug Use History: None Reported - Past Family History Mother Family Medical History: Hyperlipidemia Medications and Allergies Home Medications Medication Instructions Recorded Confirmed Type Acetylcysteine [Nac] 1,000 mg PO DAILY 10/17/21 10/25/21 History Ascorbic Acid [Vitamin C] 1,000 mg PO DAILY 10/17/21 10/25/21 History Aspirin EC [Ecotrin Low Dose] 81 mg PO DAILY 10/17/21 10/25/21 History Atorvastatin [Lipitor] 80 mg PO HS 10/17/21 10/25/21 History Cholecalciferol [Vitamin D3 (10 20 mcg PO DAILY 10/17/21 10/25/21 History Mcg = 400 Iu)] Co Q-10 100mg 100 mg PO DAILY 10/17/21 10/25/21 History DULoxetine HCL 20 mg PO DAILY PRN 10/17/21 10/25/21 History Finasteride [Proscar] 5 mg PO DAILY 10/17/21 10/25/21 History Gabapentin [Neurontin] 100 mg PO QID PRN 10/17/21 10/25/21 History Glucos Sul 2Kcl/MSM/Chond/C/Mn 1 cap PO DAILY 10/17/21 10/25/21 History [Glucosamine Chondroitin Cap] Isosorbide Mononitrate ER [Imdur] 15 mg PO DAILY 10/17/21 10/25/21 History Magnesium 420mg 420 mg PO DAILY 10/17/21 10/25/21 History Multivitamins, Thera [Multivitamin 1 tab PO DAILY 10/17/21 10/25/21 History (formulary)] Pantoprazole [Protonix] 40 mg PO BID 10/17/21 10/25/21 History Quercetin 500mg 500 mg PO DAILY 10/17/21 10/25/21 History Tamsulosin [Flomax] 0.8 mg PO HS 10/17/21 10/25/21 History Ticagrelor [Brilinta] 90 mg PO BID 10/17/21 10/25/21 History Vitamin B Complex 1 cap PO DAILY 10/17/21 10/25/21 History Zinc 50 mg PO DAILY 10/17/21 10/25/21 History lisinopriL 2.5 mg PO DAILY 10/17/21 10/25/21 History Metoprolol Succinate (ER) [Toprol 12.5 mg PO DAILY 10/18/21 10/25/21 History XL] Allergies Allergy/AdvReac Type Severity Reaction Status Date / Time No Known Allergies Allergy Verified 10/25/21 07:04 Physical Exam Osteopathic Statement: *. No significant issues noted on an osteopathic structural exam other than those noted in the History and Physical/Consult. Vitals: Vital Signs Temp Pulse Pulse Resp BP Pulse Ox 10/25/21 09:08 58 L 18 127/71 98 10/25/21 05:43 59 L 18 135/76 98 10/25/21 04:46 60 18 153/79 96 10/25/21 03:30 66 10/25/21 03:01 97.5 F L 63 22 148/72 99 Intake and Output 10/24/21 10/25/21 10/25/21 22:59 06:59 14:59 Other: Weight 90.718 kg Results CBC & Chem 7: 10/25/21 03:04 10/26/21 04:54 Labs: Abnormal Lab Results - Last 24 Hours (Table) 10/25/21 10/25/21 Range/Units 03:04 03:04 WBC 2.9 L (3.8-10.6) k/uL RBC 4.15 L (4.30-5.90) m/uL Plt Count 143 L (150-450) k/uL Lymphocytes # 0.4 L (1.0-4.8) k/uL Carbon Dioxide 21 L (22-30) mmol/L BUN 22 H (9-20) mg/dL Glucose 117 H (74-99) mg/dL
[2021-10-25] MEDS ORDERED: NON FORMULARY DRUG (Co Q-10 100mg 100 MG) PO SCH (09:30)
[2021-10-25] MEDS ORDERED: NON FORMULARY DRUG (Vitamin B Complex [Vitamin B Complex] 1 EACH Capsule) PO SCH (09:45)
[2021-10-25] MEDS: METOPROLOL SUCCINATE (ER) 25 MG TAB.ER.24H PO SCH (10:49)
[2021-10-25] MEDS: ASCORBIC ACID 500 MG TAB PO SCH (10:50)
[2021-10-25] MEDS: PANTOPRAZOLE 40 MG TABLET PO SCH ×3 (10:50→20:50)
[2021-10-25] MEDS: MULTIVITAMINS, THERA 1 EACH TAB PO SCH (10:50)
[2021-10-25] MEDS: TICAGRELOR 90 MG TAB PO SCH ×2 (10:51→20:50)
[2021-10-25] MEDS: ASPIRIN 81 MG PO SCH (10:51)
[2021-10-25] MEDS: ZINC SULFATE 220 MG CAP PO SCH (10:51)
[2021-10-25] MEDS: FINASTERIDE 5 MG TAB PO SCH (10:51)
[2021-10-25] MEDS: CHOLECALCIFEROL 10 MCG (400 IU) TABLET PO SCH (10:57)
[2021-10-25] MEDS: ISOSORBIDE MONONITRATE ER 15 MG TAB PO SCH ×2 (10:58→10:59)
--- NOTE | 2021-10-25 11:51 | P.CRDCN ---
History of Present Illness History of present illness: - . HPI: This patient was recently discharged on the second of this month. He has a history of CAD underwent stenting in 2019 and also August 2020. These details are not available this was in [facility]. He was in the hospital on October 18 and had a Lexiscan stress test as well as an echo and the studies revealed evidence of ordered PR and global decrease in contractility with estimate ejection fraction on echo of 25% on Lexiscan stress test of 38% with anteroapical fixed defect. He was advised to pursue medical therapy and follow- up with his doctor in [place] but he comes back into the hospital complaining of chest pressure persistent and also getting worse with activity. 3 sets of troponins are unremarkable EKG revealed sinus with left bundle making it difficult to interpret. Patient's symptoms are suggestive ischemia but troponin is normal and no reversible defects on the nuclear scan however given his recurrent hospitalization left bundle am recommending coronary angiography and discussed with the patient the rationale risks and benefits and options. I will request Dr. Luna to perform the procedure since he saw the patient last week. RELEVANT PAST MEDICAL HISTORY: Known CAD with prior PCI last one in August 2020, hypertension and hypercholesterolemia and past history of smoking. MEDICATIONS: ALLERGIES: . REVIEW OF SYSTEMS: . PHYSICIAL EXAM: Vital signs stable there is no JVD S1-S2 heard normally there is a short systolic murmur at the base and left sternal border lungs revealed bilateral decent air entry abdomen is soft nontender lower extremities reveal palpable pulses no edema central nervous system is normal. IMPRESSION: 1. Unstable angina. 2. Ischemic cardiomyopathy. 3. Benign hypertension. 4. Hypercholesterolemia. 5. . RECOMMENDATIONS: I will resume home medications and advised coronary angiography rationale risks benefits options explained patient understands all details and wishes to proceed. Dr. Luna will perform the procedure. Past Medical History Past Medical History: Myocardial Infarction (PR) Last Myocardial Infarction Date:: . History of Any Multi-Drug Resistant Organisms: None Reported Past Surgical History: No Surgical Hx Reported Past Psychological History: No Psychological Hx Reported Smoking Status: Former smoker Past Alcohol Use History: Occasional Past Drug Use History: None Reported - Past Family History Mother Family Medical History: Hyperlipidemia Medications and Allergies Home Medications Medication Instructions Recorded Confirmed Type Acetylcysteine [Nac] 1,000 mg PO DAILY 10/17/21 10/25/21 History Ascorbic Acid [Vitamin C] 1,000 mg PO DAILY 10/17/21 10/25/21 History Aspirin EC [Ecotrin Low Dose] 81 mg PO DAILY 10/17/21 10/25/21 History Atorvastatin [Lipitor] 80 mg PO HS 10/17/21 10/25/21 History Cholecalciferol [Vitamin D3 (10 20 mcg PO DAILY 10/17/21 10/25/21 History Mcg = 400 Iu)] Co Q-10 100mg 100 mg PO DAILY 10/17/21 10/25/21 History DULoxetine HCL 20 mg PO DAILY PRN 10/17/21 10/25/21 History Finasteride [Proscar] 5 mg PO DAILY 10/17/21 10/25/21 History Gabapentin [Neurontin] 100 mg PO QID PRN 10/17/21 10/25/21 History Glucos Sul 2Kcl/MSM/Chond/C/Mn 1 cap PO DAILY 10/17/21 10/25/21 History [Glucosamine Chondroitin Cap] Isosorbide Mononitrate ER [Imdur] 15 mg PO DAILY 10/17/21 10/25/21 History Magnesium 420mg 420 mg PO DAILY 10/17/21 10/25/21 History Multivitamins, Thera [Multivitamin 1 tab PO DAILY 10/17/21 10/25/21 History (formulary)] Pantoprazole [Protonix] 40 mg PO BID 10/17/21 10/25/21 History Quercetin 500mg 500 mg PO DAILY 10/17/21 10/25/21 History Tamsulosin [Flomax] 0.8 mg PO HS 10/17/21 10/25/21 History Ticagrelor [Brilinta] 90 mg PO BID 10/17/21 10/25/21 History Vitamin B Complex 1 cap PO DAILY 10/17/21 10/25/21 History Zinc 50 mg PO DAILY 10/17/21 10/25/21 History lisinopriL 2.5 mg PO DAILY 10/17/21 10/25/21 History Metoprolol Succinate (ER) [Toprol 12.5 mg PO DAILY 10/18/21 10/25/21 History XL] Allergies Allergy/AdvReac Type Severity Reaction Status Date / Time No Known Allergies Allergy Verified 10/25/21 07:04 Physical Exam Vitals: Vital Signs Temp Pulse Pulse Resp BP Pulse Ox 10/25/21 10:53 55 L 20 131/85 99 10/25/21 09:08 58 L 18 127/71 98 10/25/21 05:43 59 L 18 135/76 98 10/25/21 04:46 60 18 153/79 96 10/25/21 03:30 66 10/25/21 03:01 97.5 F L 63 22 148/72 99 Intake and Output 10/24/21 10/25/21 10/25/21 22:59 06:59 14:59 Other: Weight 90.718 kg Results 10/25/21 03:04 10/25/21 03:04 Cardiac Enzymes 10/25/21 10/25/21 10/25/21 Range/Units 03:04 03:04 05:26 AST 29 (17-59) U/L Troponin I 0.022 0.026 (0.000-0.034) ng/mL 10/25/21 Range/Units 09:35 AST (17-59) U/L Troponin I 0.014 (0.000-0.034) ng/mL Coagulation 10/25/21 10/25/21 Range/Units 03:04 10:28 PT 10.8 (9.0-12.0) sec APTT 25.0 60.5 H (22.0-30.0) sec CBC 10/25/21 Range/Units 03:04 WBC 2.9 L (3.8-10.6) k/uL RBC 4.15 L (4.30-5.90) m/uL Hgb 13.6 (13.0-17.5) gm/dL Hct 40.8 (39.0-53.0) % Plt Count 143 L (150-450) k/uL Comprehensive Metabolic Panel 10/25/21 Range/Units 03:04 Sodium 138 (137-145) mmol/L Potassium 4.2 (3.5-5.1) mmol/L Chloride 106 (98-107) mmol/L Carbon Dioxide 21 L (22-30) mmol/L BUN 22 H (9-20) mg/dL Creatinine 1.13 (0.66-1.25) mg/dL Glucose 117 H (74-99) mg/dL Calcium 9.0 (8.4-10.2) mg/dL AST 29 (17-59) U/L ALT 30 (4-49) U/L Alkaline Phosphatase 77 (38-126) U/L Total Protein 6.4 (6.3-8.2) g/dL Albumin 4.2 (3.5-5.0) g/dL Current Medications Generic Name Dose Route Start Last Admin Trade Name Freq PRN Reason Stop Dose Admin Ascorbic Acid 1,000 mg 10/25/21 09:30 10/25/21 10:50 Ascorbic Acid 500 Mg Tab PO 1,000 mg DAILY ZANE Administration Aspirin 81 mg 10/25/21 09:45 10/25/21 10:51 Aspirin 81 Mg PO 81 mg DAILY [facility] Administration Atorvastatin Calcium 80 mg 10/25/21 21:00 Atorvastatin 80 Mg Tab PO [facility] Cholecalciferol 20 mcg 10/25/21 09:30 10/25/21 10:57 Cholecalciferol 10 Mcg (400 Iu) Tablet PO 20 mcg DAILY [facility] Administration Duloxetine HCl 20 mg 10/25/21 09:29 Duloxetine Hcl 20 Mg Capsule.Dr PO DAILY PRN NERVE PAIN Finasteride 5 mg 10/25/21 09:30 10/25/21 10:51 Finasteride 5 Mg Tab PO 5 mg DAILY [facility] Administration Gabapentin 100 mg 10/25/21 09:29 Gabapentin 100 Mg Cap PO QID PRN NERVE PAIN Heparin Sodium/Sodium Chloride 250 mls @ 10 mls/hr 10/25/21 05:00 10/25/21 04:57 25,000 unit/ Sodium Chloride IV 11.0232 units/kg/hr .Q24H ZANE 10 mls/hr Administration Protocol 11.0232 UNITS/KG/HR Isosorbide Mononitrate 15 mg 10/25/21 09:45 10/25/21 10:59 Isosorbide Mononitrate Er 15 Mg Tab PO Not Given DAILY [facility] Lisinopril 2.5 mg 10/25/21 09:45 10/25/21 10:51 Lisinopril 2.5 Mg Tab PO 2.5 mg DAILY [facility] Administration Metoprolol Succinate 12.5 mg 10/25/21 09:45 10/25/21 10:49 Metoprolol Succinate (Er) 25 Mg Tab.Er.24h PO Not Given DAILY [facility] Morphine Sulfate 4 mg 10/25/21 04:42 Morphine Sulfate 4 Mg/Ml Syringe IVP Q4HR PRN Pain Multivitamins 1 each 10/25/21 09:45 10/25/21 10:50 Multivitamins, Thera 1 Each Tab PO 1 each DAILY ZANE Administration Nitroglycerin 0.4 mg 10/25/21 04:46 Nitroglycerin Sl Tabs 0.4 Mg Tab SUBLINGUAL Q5M PRN Chest Pain Pantoprazole Sodium 40 mg 10/25/21 09:45 10/25/21 10:50 Pantoprazole 40 Mg Tablet PO 40 mg BID ZANE Administration Tamsulosin HCl 0.8 mg 10/25/21 21:00 Tamsulosin 0.4 Mg Cap.Er.24h PO HS ZANE Ticagrelor 90 mg 10/25/21 09:45 10/25/21 10:51 Ticagrelor 90 Mg Tab PO 90 mg BID ZANE Administration Zinc Sulfate 220 mg 10/25/21 09:45 10/25/21 10:51 Zinc Sulfate 220 Mg Cap PO 220 mg DAILY ZANE Administration Intake and Output 10/24/21 10/25/21 10/25/21 22:59 06:59 14:59 Other: Weight 90.718 kg 10/25/21 03:04 10/25/21 03:04
[2021-10-25] MEDS ORDERED: HEPARIN SODIUM 1,000 UN/ML (10ML VL) ONE (12:01)
[2021-10-25] MEDS ORDERED: IV FLUID CONTINUATION 500 ML IV ONE (12:05)
[2021-10-25] MEDS: MIDAZOLAM 2 MG/2 ML VIAL IV ONE ×2 (12:13→12:22)
[2021-10-25] MEDS ORDERED: fentaNYL (PF) 50 MCG/ML 2 ML AMP IV ONE (12:13)
[2021-10-25] MEDS ORDERED: LIDOCAINE 1% INJ 10MG/ML (30 ML VIAL-PF) SQ ONE (12:17)
[2021-10-25] MEDS ORDERED: VERAPAMIL 2.5 MG/ML 2 ML AMP INTRAARTER ONE (12:21)
[2021-10-25] MEDS: fentaNYL (PF) 50 MCG/ML 2 ML AMP ONE ×2 (12:22→12:31)
[2021-10-25] MEDS: NITROGLYCERIN 1000MCG/10ML SYRINGE INTRAARTER ONE ×3 (12:23→12:31)
[2021-10-25] MEDS: HEPARIN SODIUM 1,000 UN/ML (10ML VL) IV ONE ×2 (12:29→13:02)
[2021-10-25] MEDS ORDERED: MIDAZOLAM 2 MG/2 ML VIAL IV ONE (12:31)
[2021-10-25] MEDS ORDERED: IOPAMIDOL-370 125ML BTL INJ ONE (13:18)
[2021-10-25] MEDS ORDERED: TAMSULOSIN 0.4 MG CAP.ER.24H PO SCH (21:00)
[2021-10-25] MEDS ORDERED: ATORVASTATIN 80 MG TAB PO SCH (21:00)
[2021-10-25] MEDS ORDERED: RX INFO: IV CONTRAST WAS GIVEN 1 EACH MISC MISCELLANE PRN (23:01)
--- NOTE | 2021-10-25 23:01 | P.PRCINT ---
Percutaneous Coronary Int. - Percutaneous Coronary Intervention Percutaneous Coronary Intervention: PROCEDURES PERFORMED: Left heart catheterization, bilateral coronary angiography, cutting balloon angioplasty RCA with a 3.5 x 15mm Angiosculpt balloon, balloon angioplasty RCA instent stenosis with a 5.0 x 20mm NC balloon INDICATION: Unstable angina, history of CAD CONSENT:I have discussed the risks, benefits and alternative therapies for the above-mentioned procedure and for both sedation/analgesia as well as necessary blood product administration, if indicated, as they pertain to this patient. The patient has indicated understanding and acceptance of the risks and procedures discussed. PROCEDURE: After the risks, benefits and alternatives of the above mentioned procedure explained in detail with the patient, informed consent was obtained. Patient was taken to the catheterization lab and prepped and draped in usual fashion. 1% lidocaine was used to anesthetize the right radial artery. A 6- [place] sheath was placed in the right radial artery using modified Seldinger technique. Left coronary angiography was performed with a 5-[place] JL 3.5 catheter and right coronary angiography was performed with a 5-[place] JR5 catheter in various views. A 5-[place] FR5 catheter was inserted into the left ventricle and pressure measurements were obtained. The decision was made to performed PCI of the RCA. Heparin was given for ACT > 250. A 6Fr AL 0.75 guide was used to engage the RCA. A 0.014 wire was advanced into the distal RCA. A 4.0 x 12mm NC balloon was attempted however significant "watermelloning" occurred. Therefore a 3.5 x 15mm Angiosculpt balloon was used to perform cutting balloon angioplasty. Next a 5.0 x 20mm NC balloon was used to perform final angioplasty. Given instent stenosis with what appeared to be multiple layers of stent, further stenting was deferred with good result with angioplasty. Preintervention there was BONY 3 flow with 85% stenosis and post intervention there was <15% stenosis and BONY 3 flow. The wire was pulled and final angiograms were performed. The right radial sheath was removed and a TR band was placed with hemostasis achieved. The patient tolerated the procedure well. Patient was transported back to the post catheterization holding area in stable condition. Conscious Sedation: Patient was monitored under the direct supervision of vision of myself for conscious sedation using Versed and fentanyl for a total duration of minutes HEMODYNAMICS: Aorta: 144/78 LV: 148/5, LVEDP 14 SELECTIVE CORONARY ARTERIOGRAPHY: LEFT MAIN: The left main is a large caliber vessel which bifurcates into the LAD and circumflex. There is diffuse 20-30% stenosis. LEFT ANTERIOR DESCENDING CORONARY ARTERY: LAD is a large caliber vessel which wraps around to the apex. There is diffuse 20-30% stenosis as well as what appears to be a mid LAD stent. LEFT CIRCUMFLEX CORONARY ARTERY: Left circumflex is a moderate caliber vessel with mild luminal irregularities. RIGHT CORONARY ARTERY: The right coronary artery is a large caliber vessel which gives off a PDA and PLV branch and is the dominant vessel. There is a long segment of proximal to mid RCA stent. The stent appears well expanded however has a proximal RCA 85% instent stenosis. Otherwise there is mild 30-40% mid and distal RCA stenosis. FINAL IMPRESSION: 1. CAD as described above including 85% RCA instent stenosis and mild left main 20-30% stenosis, LAD 20-30% stenosis. 2. S/p cutting balloon angioplasty RCA with a 3.5 x 15mm Angiosculpt balloon, balloon angioplasty RCA instent stenosis with a 5.0 x 20mm NC balloon 3. Mormal left sided filling pressures PLAN: 1. Aggressive risk factor modification per most recent ACC/AHA guidelines. 2. Continue dual antiplatelets with aspirin and Brillinta for 12 months.
[2021-10-25] MEDS ORDERED: ACETAMINOPHEN TAB 325 MG TAB PO PRN (23:04)
[2021-10-26] MEDS: SODIUM CHLORIDE 0.9% 1,000 ML in EMPTY BAG 1 BAG IV SCH ×2 (00:35→11:43)
[2021-10-26 03:29] VITALS: PULSE 62; TEMP 98.3
[2021-10-26] MEDS: ASCORBIC ACID 500 MG TAB PO SCH (07:42)
[2021-10-26] MEDS: ZINC SULFATE 220 MG CAP PO SCH (07:42)
[2021-10-26] MEDS: ASPIRIN 81 MG PO SCH (07:43)
[2021-10-26] MEDS: TICAGRELOR 90 MG TAB PO SCH (07:43)
[2021-10-26] MEDS: PANTOPRAZOLE 40 MG TABLET PO SCH (07:43)
[2021-10-26] MEDS: FINASTERIDE 5 MG TAB PO SCH (07:43)
[2021-10-26] MEDS: ISOSORBIDE MONONITRATE ER 15 MG TAB PO SCH ×2 (07:43→07:50)
[2021-10-26] MEDS: MULTIVITAMINS, THERA 1 EACH TAB PO SCH (07:43)
[2021-10-26] MEDS: METOPROLOL SUCCINATE (ER) 25 MG TAB.ER.24H PO SCH (07:43)
[2021-10-26 08:01] VITALS: BP 118/61; RESP 18
[2021-10-26] MEDS ORDERED: ASPIRIN 325 MG TAB PO SCH (09:00)
[2021-10-26 09:53] LABS: Chol/HDL Ratio 4.27 Ratio
--- NOTE | 2021-10-26 10:37 | P.PN ---
Subjective HPI: This patient was recently discharged on the second of this month. He has a history of CAD underwent stenting in 2019 and also August 2020. These details are not available this was in [facility]. He was in the hospital on October 18 and had a Lexiscan stress test as well as an echo and the studies revealed evidence of ordered MS and global decrease in contractility with estimate ejection fraction on echo of 25% on Lexiscan stress test of 38% with anteroapical fixed defect. He was advised to pursue medical therapy and follow- up with his doctor in [place] but he comes back into the hospital complaining of chest pressure persistent and also getting worse with activity. 3 sets of troponins are unremarkable EKG revealed sinus with left bundle making it difficult to interpret. Patient's symptoms are suggestive ischemia but troponin is normal and no reversible defects on the nuclear scan however given his recurrent hospitalization left bundle am recommending coronary angiography and discussed with the patient the rationale risks and benefits and options. I will request Dr. Luna to perform the procedure since he saw the patient last week. RELEVANT PAST MEDICAL HISTORY: Known CAD with prior PCI last one in August 2020, hypertension and hypercholesterolemia and past history of smoking. 10/26 Patient seen and examined. Patient denies any further chest pain. He did have heart catheterization performed which showed 85% proximal RCA in-stent stenosis. He underwent cutting balloon and angioplasty with some residual 15% stenosis however acceptable result with patient describing what appears to be recurrent issues in this area from before. PHYSICIAL EXAM: Vital signs stable there is no JVD S1-S2 heard normally there is a short systolic murmur at the base and left sternal border lungs revealed bilateral decent air entry abdomen is soft nontender lower extremities reveal palpable pulses no edema central nervous system is normal. IMPRESSION: 1. Unstable angina. 2. Ischemic cardiomyopathy. 3. Benign hypertension. 4. Hypercholesterolemia. 5. S/p balloon angioplasty RCA 10/25/21 RECOMMENDATIONS: Continue with dual antiplatelets for 12 months. Continue with current regimen. Patient with recurrent episodes of in-stent stenosis with previous need for angioplasty and stenting 1 year ago. Patient may have recurrent episodes and may consider brachytherapy if continues to have issues. Patient stable for discharge home from a cardiology standpoint. Objective - Vital Signs Vital signs: Vital Signs Temp 98.3 F 10/26/21 07:00 Pulse 62 10/26/21 08:00 Resp 18 10/26/21 08:00 BP 118/61 10/26/21 07:00 Pulse Ox 92 L 10/26/21 07:00 FiO2 Intake & Output 10/25/21 10/26/21 10/26/21 18:59 06:59 18:59 Intake Total 268 Balance 268 Weight 90.718 kg Intake: IV 150 Oral 118 Other: Voiding Method Toilet Toilet # Voids 1 3 - Labs CBC & Chem 7: 10/25/21 03:04 10/26/21 04:54 Labs: Abnormal Lab Results - Last 24 Hours (Table) 10/25/21 10/25/21 Range/Units 03:04 10:28 APTT 60.5 H (22.0-30.0) sec Triglycerides 171.00 H (0.00-149.00) mg/dL HDL Cholesterol 32.80 L (40.00-60.00) mg/dL
[2021-10-26] MEDS: CHOLECALCIFEROL 10 MCG (400 IU) TABLET PO SCH (11:37)
--- NOTE | 2021-10-26 11:37 | P.DS ---
Providers Date of admission: 10/25/21 04:46 Expected date of discharge: 10/26/21 Attending physician: Laura Turner MD Consults: 10/25/21 04:46 Consult Physician Urgent Consulting Provider: Anibal Allen Consult Reason/Comments: cp Do you want consulting provider notified?: Yes 10/25/21 23:01 Consult Physician Routine Consulting Provider: [facility] Consult Reason/Comments: Post Interventional Patient Do you want consulting provider notified?: Already Contacted Primary care physician: Physician Nonstaff Hospital Course: Discharge Diagnosis: Unstable angina. Patient underwent cardiac cath 10/25/21 and had balloon angioplasty to in-stent stenosis of RCA. Patient to continue dual antiplatelet therapy with aspirin and Brilinta. 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 Ischemic cardiomyopathy with previously known EF of 25%. Patient to continue daily cardiac medication regimen with atorvastatin, lisinopril, metoprolol, isosorbide mononitrate, aspirin and Brilinta. Hypertension. Monitor vital signs and continue daily medication regimen with lisinopril, metoprolol, and isosorbide mononitrate. Hyperlipidemia. Continue daily medication regimen with atorvastatin. Hospital Course: Patient is a very pleasant 76-year-old male with a past medical history of CAD with stents on dual antiplatelet therapy with aspirin and Brilinta, hypertension, ischemic cardiomyopathy, and hyperlipidemia. he presented to the emergency department with a chief complaint of chest pain. Patient reports midsternal chest pain with exertion. Patient states he has been experiencing this intermittent pain over the past 2 days. He denies having any headache, lightheadedness, dizziness, palpitations, shortness of breath, exertional dyspnea, nausea, diaphoresis, or experiencing any numbness/tingling/weakness/swelling in his extremities. Patient describes this pain as a tightness and states that it remains in his midsternal chest and denies any radiation of this pain. Patient denies anything making it better or worse but does state he noticed that it comes on more with exertion. Patient underwent full evaluation in the emergency department. EKG completed revealing sinus rhythm at 62 bpm with a left bundle branch blockwhich is unchanged from previous EKG obtained on 10/17/21. chest x-ray negative for acute cardiopulmonary process.CBC revealing bicytopenia with WBC count of 2.9 and platelet count of 143. CMP showing no significant abnormalities. Initial troponin 0.022 with repeat troponin is 0.026. Patient admitted under our services with consultation to cardiology. Troponins were trended resulting in 0.022, 0.026, and 0.014. Lipid profile revealing elevated triglycerides of 171.00 and low HDL of 32.80. Patient underwent a cardiac cath on 10/25/21 resulting in balloon angioplasty to in-stent stenosis of RCA. Patient is medically stable at this time, he is to continue with the antiplatelet therapy with aspirin and Brilinta and continue the remainder of his daily cardiac regimen consisting of atorvastatin, lisinopril, metoprolol, and isosorbide mononitrate. Physical exam: Vital signs reviewed and stable. General: Nontoxic, no distress and appears stated age. Derm: Skin warm and dry, normal coloration for ethnicity. Head: Atraumatic, normocephalic and symmetric. Eyes: EOMs intact, no lid lag, and anicteric sclera Mouth: no lip lesions, mucus membranes moist Cardiovascular: regular rate and rhythm with normal S1S2, systolic murmur, positive posterior tibial pulses bilaterally, and cap refill < 2 seconds. Lungs: Respirations even, regular, and unlabored on room air. Lungs CTA bilaterally, no rhonchi, no rales, no wheezing, and no accessory muscle usage. Abdominal: soft, nontender to palpation, no guarding, no appreciable organome tucker Ext: ROM intact. No gross muscle atrophy, trace bilateral lower extremity edema, no contractures Neuro: Speech clear, face symmetrical and CN II-XII grossly intact with no noted focal neuro deficits Psych: Alert and oriented to person, place, time, and situation. Appropriate and pleasant affect. A total of 40 minutes of time were spent preparing this complex discharge summary. Pt was discharged on 10/26/21 at 11:36 AM. I reviewed the documentation as provided by the MENDOZA above, who is the original author of this note. I agree with the documented assessment and plan, with the following changes: none Patient Condition at Discharge: Stable Plan - Discharge Summary New Discharge Prescriptions: Continue Acetylcysteine [Nac] 1,000 mg PO DAILY Cholecalciferol [Vitamin D3 (10 Mcg = 400 Iu)] 20 mcg PO DAILY Ascorbic Acid [Vitamin C] 1,000 mg PO DAILY Aspirin EC [Ecotrin Low Dose] 81 mg PO DAILY Zinc 50 mg PO DAILY Finasteride [Proscar] 5 mg PO DAILY Pantoprazole [Protonix] 40 mg PO BID Magnesium 420mg 420 mg PO DAILY Isosorbide Mononitrate ER [Imdur] 15 mg PO DAILY DULoxetine HCL 20 mg PO DAILY PRN PRN Reason: NERVE PAIN Metoprolol Succinate (ER) [Toprol XL] 12.5 mg PO DAILY Quercetin 500mg 500 mg PO DAILY Multivitamins, Thera [Multivitamin (formulary)] 1 tab PO DAILY Glucos Sul 2Kcl/MSM/Chond/C/Mn [Glucosamine Chondroitin Cap] 1 cap PO DAILY Vitamin B Complex 1 cap PO DAILY Tamsulosin [Flomax] 0.8 mg PO HS Co Q-10 100mg 100 mg PO DAILY lisinopriL 2.5 mg PO DAILY Ticagrelor [Brilinta] 90 mg PO BID Atorvastatin [Lipitor] 80 mg PO HS Gabapentin [Neurontin] 100 mg PO QID PRN PRN Reason: NERVE PAIN Discharge Medication List Acetylcysteine [Nac] 1,000 mg PO DAILY 10/17/21 [History] Ascorbic Acid [Vitamin C] 1,000 mg PO DAILY 10/17/21 [History] Aspirin EC [Ecotrin Low Dose] 81 mg PO DAILY 10/17/21 [History] Atorvastatin [Lipitor] 80 mg PO HS 10/17/21 [History] Cholecalciferol [Vitamin D3 (10 Mcg = 400 Iu)] 20 mcg PO DAILY 10/17/21 [History] Co Q-10 100mg 100 mg PO DAILY 10/17/21 [History] DULoxetine HCL 20 mg PO DAILY PRN 10/17/21 [History] Finasteride [Proscar] 5 mg PO DAILY 10/17/21 [History] Gabapentin [Neurontin] 100 mg PO QID PRN 10/17/21 [History] Glucos Sul 2Kcl/MSM/Chond/C/Mn [Glucosamine Chondroitin Cap] 1 cap PO DAILY 10/17/21 [History] Isosorbide Mononitrate ER [Imdur] 15 mg PO DAILY 10/17/21 [History] Magnesium 420mg 420 mg PO DAILY 10/17/21 [History] Multivitamins, Thera [Multivitamin (formulary)] 1 tab PO DAILY 10/17/21 [History] Pantoprazole [Protonix] 40 mg PO BID 10/17/21 [History] Quercetin 500mg 500 mg PO DAILY 10/17/21 [History] Tamsulosin [Flomax] 0.8 mg PO HS 10/17/21 [History] Ticagrelor [Brilinta] 90 mg PO BID 10/17/21 [History] Vitamin B Complex 1 cap PO DAILY 10/17/21 [History] Zinc 50 mg PO DAILY 10/17/21 [History] lisinopriL 2.5 mg PO DAILY 10/17/21 [History] Metoprolol Succinate (ER) [Toprol XL] 12.5 mg PO DAILY 10/18/21 [History] Follow up Appointment(s)/Referral(s): Jacob Luna DO [STAFF PHYSICIAN] - 10/29/21 2:15 pm Patient Instructions/Handouts: Chest Pain (ED), Heart Catheterization (GEN), Coronary Angioplasty (GEN) Activity/Diet/Wound Care/Special Instructions: Discharge instructions: 1. Aspirin as anti-platelet therapy - Aspirin lessens the chance of heart attack and stroke. It helps prevent blood clots from forming, allowing the blood to flow more easily. Each day, you will take one 81 mg (non-enteric coated) tablet daily. You will be taking aspirin as a lifelong medication. Do not stop unless instructed by your doctor. 2. Anti-platelet Therapy. -In addition to aspirin, you will take ONE of the following anti-platelet medications daily. This will help prevent a clot from forming in your stent: Plavix (clopidogrel) -You will need to take your anti-platelet medicine every day for 12 months -Please consult your heart doctor before you stop this medicine. -They may want you to continue for a longer period of time. 3. Statins -A statin medication lowers cholesterol levels in the blood. This helps slow the progression of heart disease. - Please take your statin medication as prescribed by your doctor. -You may be taking one of the following statins: Simvastatin Other Medications: -Beta zoila. (Your Medication: Metoprolol) Is a medication that protects your heart from stress and can prevent future heart attacks. It can slow your heart rate. It can take weeks for your body to get used to a beta zoila. The dose may need to be changed a few times as your body adjusts Do not stop taking these medicines without talking to your doctor. -Take all other medicines as directed by your doctor. Do not take any extra aspirin or ibuprofen. They can increase your risk of bleeding. Many briz-ddl-itlbrlv drugs contain aspirin. If you are unsure about what the drug contains, check with your pharmacist before taking it. -For mild discomfort, you may take plain Tylenol (acetaminophen). Follow dose directions, but do not take more than 4,000 mg of acetaminophen in 24 hours. Contact your doctor right away or go to the nearest hospital Emergency Room if you have: -Severe angina or chest pain. (This may be a sign of a problem with your stent.) -Excessive bruising, blood in urine/stool or black tarry stools. Healthy LifeStyle It is important to keep a heart healthy lifestyle. This can improve your long- term health and decrease your risk for heart attacks. -Managing your blood cholesterol, blood pressure, weight, and stress. -The importance of regular exercise. -Heart Healthy Diet: Include more plants in your diet. Eat lots of fresh vegetables and fresh fruits. Eat good fats: plant based oils, avocado, nuts, beans, legumes. Eat more seafood. Limit Meat. Switch to whole grains. 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 Thank you for allowing us to participate in your care, it was truly a pleasure having you for our patient!!! I wish you and your is very safe and pleasant drive back to [place]!!! Discharge Disposition: HOME SELF-CARE
[2021-10-26] MEDS ORDERED: ARTIFICIAL TEARS-HYPROMELLOSE DROPS 15 ML BTL LEFT EYE SCH (12:00)
== END 2021-10-26 12:26 | disposition home or self-care (01) ==
LOC: EC 02:55 → 6NMEDSUR 04:46
PROVIDERS: ADMIT Internal Medicine; ATTEND Internal Medicine
DX: T82.855A Stenosis of coronary artery stent, initial encounter (principal); I25.110 Atherosclerotic heart disease of native coronary artery with unstable angina pectoris; I25.5 Ischemic cardiomyopathy; I10 Essential (primary) hypertension; E78.00 Pure hypercholesterolemia, unspecified; I34.0 Nonrheumatic mitral (valve) insufficiency; E78.5 Hyperlipidemia, unspecified; E78.1 Pure hyperglyceridemia; F41.9 Anxiety disorder, unspecified; I25.2 Old myocardial infarction; Z79.82 Long term (current) use of aspirin; Z79.02 Long term (current) use of antithrombotics/antiplatelets; Z79.899 Other long term (current) drug therapy; Z95.5 Presence of coronary angioplasty implant and graft; Z87.891 Personal history of nicotine dependence; Y83.1 Surgical operation with implant of artificial internal device as the cause of abnormal reaction of the patient, or of later complication, without mention of misadventure at the time of the procedure; Z83.49 Family history of other endocrine, nutritional and metabolic diseases
CPT/HCPCS: 96374; 96375; 99291; 36415; 93005; 93458; 92920; 80061; 80053; 82565; 83735; 84484; 85025; 85610; 85730; 71046; G0378 ×2; C1769 ×4; C1887 ×2; C1894; C1725 ×4; S0138 ×2; J2250; J2270; J2001; J3010; J1644 ×2; Q9967